=== PATIENT | female | born 1990 | race Two or more races ===

== ENCOUNTER 2018-09-14 21:25 | Emergency (ER) | payer OTHER ==
[~2018-09-14] VITALS: Ht 170.2 cm; Wt 50.3 kg
[2018-09-15] MEDS ORDERED: NORFLEX100MG PO (01:46)
[2018-09-15] MEDS ORDERED: MOBIC15 MG PO (01:46)
== END 2018-09-15 02:16 | disposition home or self-care (01) ==
LOC: ER 21:25
DX: M54.2 Cervicalgia (principal); M54.5 Low back pain